=== PATIENT | female | born 1960 | race Caucasian/White ===

== ENCOUNTER 2019-10-03 18:05 | Emergency (ER) | payer MEDICARE ==
[~2019-10-03] VITALS: Ht 157.5 cm; Wt 75.0 kg
[2019-10-03 18:09] VITALS: TEMP 98.1
[2019-10-03] MEDS ORDERED: TOPROL XL 25MG25 MG PO (18:34)
[2019-10-03] MEDS ORDERED: EFFE25TA PO (18:35)
[2019-10-03 19:10] VITALS: BP 175/85
[2019-10-03 19:26] VITALS: PULSE 76
== END 2019-10-03 19:26 | disposition home or self-care (01) ==
LOC: COL.ER 18:05
DX: G43.909 Migraine, unspecified, not intractable, without status migrainosus (principal); F32.9 Major depressive disorder, single episode, unspecified; I10 Essential (primary) hypertension
CPT/HCPCS: J1200; J1885; J2765; J7030

== ENCOUNTER 2019-10-19 14:00 | Emergency (ER) | payer MEDICARE, OTHER ==
[~2019-10-19 14:00] MED LIST: EFFE25TA PO; TOPROL XL 25MG25 MG PO
[2019-10-19 14:16] VITALS: BP 183/106; TEMP 98.3
[2019-10-19] MEDS ORDERED: PHRENILIN 325 M1 TAB PO (15:12)
[2019-10-19 17:23] VITALS: PULSE 80
== END 2019-10-19 17:23 | disposition home or self-care (01) ==
LOC: COL.ER 14:00
DX: G43.909 Migraine, unspecified, not intractable, without status migrainosus (principal); I10 Essential (primary) hypertension; Z87.442 Personal history of urinary calculi; Z98.890 Other specified postprocedural states
CPT/HCPCS: J1200; J1885; J2765; J7030

== ENCOUNTER 2020-11-11 10:37 | Emergency (ER) | payer MEDICARE, OTHER ==
[~2020-11-11] VITALS: Ht 157.5 cm; Wt 75.0 kg
[~2020-11-11 10:37] MED LIST changes: +PHRENILIN 325 M1 TAB PO
[2020-11-11] MEDS ORDERED: LIDODERM 5% PATC1 EA TP (12:16)
[2020-11-11] MEDS ORDERED: PERCOCET 325 MG1 TA2 PO (12:16)
[2020-11-11 12:52] VITALS: BP 160/89; PULSE 61; TEMP 97.3
== END 2020-11-11 12:52 | disposition home or self-care (01) ==
LOC: COL.ER 10:37
DX: S20.20XA Contusion of thorax, unspecified, initial encounter (principal); Z88.1 Allergy status to other antibiotic agents; X50.0XXA Overexertion from strenuous movement or load, initial encounter
CPT/HCPCS: A9284; J1885